=== PATIENT | female | born 1975 | race Hispanic/Latino ===

== ENCOUNTER 2017-04-22 15:56 | Emergency (ER) | payer MEDICAID ==
[2017-04-22 15:56] VITALS: BMI 39.8
[2017-04-22 16:17] VITALS: BP 165/129; PULSE 114; RESP 20; TEMP 97.8; O2SAT 98
--- NOTE | 2017-04-22 16:56 | C.PDOC ---
History Of Present Illness 41 yr old female with PMHx of Lyme disease, brought in via BLS presents to the ER stating she was going up the hill in her wheelchair, when one of the tires got stuck in a pot hole. Patient states while trying to get out of the pothole she caused muscle spasms in her back. States the pain goes from her neck down to her bilateral legs. Patient states her wheelchair broke in the process and states she cannot ambulate without a wheelchair. Patient denies chest pain, SOB , weakness or numbness. 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) Past Medical History Reviewed: Historical Data, Nursing Documentation, Vital Signs Vital Signs: Last Vital Signs Temp 97.8 F 04/22/17 16:14 Pulse 114 H 04/22/17 16:14 Resp 20 04/22/17 16:14 BP 165/129 H 04/22/17 16:14 Pulse Ox 98 04/22/17 17:30 - Medical History PMH: Anxiety, Asthma, Wilton's Syndrome, Fibromyalgia, Post Traumatic Stress Disorder Surgical History: Appendectomy, Tonsillectomy Family History: States: No Known Family Hx - Social History Hx Alcohol Use: No Hx Substance Use: No - Immunization History Hx Tetanus Toxoid Vaccination: No Hx Influenza Vaccination: No Hx Pneumococcal Vaccination: No Review Of Systems Except As Marked, All Systems Reviewed And Found Negative. Constitutional: Positive for: Other ((+) Muscle spasms from neck down to bilateral legs) Cardiovascular: Negative for: Chest Pain Respiratory: Negative for: Shortness of Breath Neurological: Negative for: Weakness, Numbness Physical Exam - Physical Exam Appears: Non-toxic Skin: Warm, Dry, No Rash Head: Atraumatic, Normacephalic Chest: Symmetrical, No Tenderness Cardiovascular: Other ((+) Hyperventilating.) Respiratory: Normal Breath Sounds, No Rales, No Rhonchi, No Stridor, No Wheezing Extremity: Normal ROM, No Swelling Neurological/Psych: Oriented x3, Normal Speech, Normal Motor, Normal Sensation ED Course And Treatment O2 Sat by Pulse Oximetry: 98 (RA) Pulse Ox Interpretation: Normal Progress Note: 1725 - Patient was informed about the hospital policy regarding Narcotics. Patient was offered Flexeril and initially accepted, but when the nurse went to administer the medicine the patient refused, stating "it won't help with the kind of pain I am having now". Medical Decision Making Medical Decision Making: PLAN: * Flexeril PO * Toradol IM Disposition - Disposition Disposition Time: 18:51 Condition: STABLE Forms: [facility] (American) - Clinical Impression Clinical Impression: Chronic pain - Scribe Statement The provider has reviewed the documentation as recorded by the Kylieibsebastian Mosley Provider Attestation: All medical record entries made by the Kylieibsebastian were at my direction and personally dictated by me. I have reviewed the chart and agree that the record accurately reflects my personal performance of the history, physical exam, medical decision making, and the department course for this patient. I have also personally directed, reviewed, and agree with the discharge instructions and disposition. Physician Patient Turnover Patient Signed Over To: Chaka Schneider Handoff Comments: Patient with chronic pain, pending [facility] home.
== END 2017-04-23 00:07 | disposition home or self-care (01) ==
LOC: C.ER 15:56
DX: G89.29 Other chronic pain (principal); M79.7 Fibromyalgia; F43.10 Post-traumatic stress disorder, unspecified; E24.9 Cushing's syndrome, unspecified